=== PATIENT | female | born 1945 | race Caucasian/White ===

== ENCOUNTER 2023-10-14 05:04 | Observation (INO) ==
--- NOTE | 2023-09-06 14:44 | PAT Medication Instructions ---
Medication Instructions Date of Service September 06, 2023 Home Medications bimatoprost 0.01 % eye drops (Lumigan) 1 drp OPL HS bupropion HCl 150 mg 24 hr tablet, extended release 150 mg PO QAM duloxetine 60 mg capsule,delayed release (Cymbalta) 60 mg PO BID gabapentin 100 mg capsule 100 mg PO BID hydroxyzine HCl 25 mg tablet 25 mg PO TID PRN Anxiety levetiracetam 500 mg tablet 500 mg PO BID ropinirole 0.25 mg tablet 0.25 mg PO BID topiramate 50 mg tablet 50 mg PO QAM DO NOT take the morning of surgery hydroxyzine HCl 25 mg tablet 25 mg PO TID PRN Anxiety Take morning of surgery With a small sip of water, OTHERWISE NOTHING TO EAT OR DRINK AFTER MIDNIGHT: bupropion HCl 150 mg 24 hr tablet, extended release 150 mg PO QAM duloxetine 60 mg capsule,delayed release (Cymbalta) 60 mg PO BID gabapentin 100 mg capsule 100 mg PO BID ropinirole 0.25 mg tablet 0.25 mg PO BID topiramate 50 mg tablet 50 mg PO QAM levetiracetam 500 mg tablet 500 mg PO BID Take evening before surgery bimatoprost 0.01 % eye drops (Lumigan) 1 drp OPL HS duloxetine 60 mg capsule,delayed release (Cymbalta) 60 mg PO BID gabapentin 100 mg capsule 100 mg PO BID hydroxyzine HCl 25 mg tablet 25 mg PO TID PRN Anxiety (if needed) levetiracetam 500 mg tablet 500 mg PO BID ropinirole 0.25 mg tablet 0.25 mg PO BID topiramate 50 mg tablet 50 mg PO QAM Other Notes If you have any questions please call us at [phone] or [phone] or [phone] or [phone]
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
[2023-10-14] MEDS: LR 60ML/HR IV SCH (06:06)
[2023-10-14] MEDS: FAMOTIDINE 20 MG TAB PO SCH (06:09)
[2023-10-14] MEDS: GABAPENTIN 300 MG CAP PO SCH (06:09)
[2023-10-14] MEDS: ACETAMINOPHEN 500 MG TAB PO SCH ×2 (06:09→21:04)
[2023-10-14] MEDS ORDERED: BUPIVACAINE 0.5 % 5 MG/1 ML PF 10ML VIAL ONE (06:20)
[2023-10-14] MEDS: dexAMETHasone**PF** 10 MG/ML VIAL IV SCH (06:28)
--- NOTE | 2023-10-14 06:31 | History & Physical Bridge Note ---
Date of Service October 14, 2023 History & Physical Bridge Note I have examined the patient, reviewed the History & Physical and in the interval since the performance of the History & Physical I have noted the following changes of clinical significance: no changes noted
[2023-10-14] MEDS ORDERED: fentaNYL citrate PF 100 MCG/2 ML VIAL IV PRN (06:38)
[2023-10-14] MEDS ORDERED: ONDANSETRON INJ 2 MG/ML 2 ML VIAL IV PRN ×2 (06:38→09:54)
[2023-10-14] MEDS ORDERED: ePHEDrine sulfate 50 MG/ML AMP IV PRN (06:38)
[2023-10-14] MEDS ORDERED: ATROPINE SULFATE 0.1 MG/ML 10ML SYR IV PRN (06:38)
[2023-10-14] MEDS ORDERED: MIDAZOLAM HCL 1 MG/ML 2ML VIAL ONE (06:40)
[2023-10-14] MEDS ORDERED: fentaNYL citrate PF 100 MCG/2 ML VIAL ONE (06:40)
[2023-10-14] MEDS: TRANEXAMIC ACID 1,000 MG **IV Pre-op IV SCH (06:40)
[2023-10-14] MEDS ORDERED: PROPOFOL IV EMULSION 10 MG/ML 20 ML VIAL IV ONE (06:48)
[2023-10-14] MEDS ORDERED: ONDANSETRON INJ 2 MG/ML 2 ML VIAL ONE (06:48)
[2023-10-14] MEDS: LR 500ML BOLUS, THEN 15ML/HR IV SCH (06:57)
[2023-10-14] MEDS: ceFAZolin 2000MG 2,000 MG/15 ML SYR IV SCH ×2 (07:00→15:25)
[2023-10-14] MEDS: ROPIV 0.5% 246mg, Ketorolac 30mg, EPINEPHrine 0.5mg in NSS INFIL SCH (07:37)
[2023-10-14] MEDS: ORTHO JOINT ANESTHETIC ONE (07:37)
[2023-10-14] MEDS ORDERED: ePHEDrine sulfate 50 MG/5 ML SYR ONE (07:44)
[2023-10-14] MEDS: TRANEXAMIC ACID 1,000 MG **IV Intra-op IV SCH (07:55)
--- NOTE | 2023-10-14 08:01 | Operative Report ---
PG Post Operative Report Pre & Post Diagnosis Operation Date: 10/14/23 07:00 Pre-Op Diagnosis: Right Hip Degenerative Joint Disease Post-Op Diagnosis: Right Hip Degenerative Joint Disease I identified the patient and participated in the time-out.: Yes Procedure Operation Date: 10/14/23 07:00 Actual Procedures p Right Anterior Total Hip Arthroplasty(Right) - Jb Ortiz DO Surgeon Jb Ortiz DO [employer] Machine Operator Jb Burroughs PA-C Estimated Blood Loss 150 Findings Consistent with Post-Op Diagnosis Specimens Right femoral head Description of Procedure Implants used I used a ZimmerBiomet total hip arthroplasty system with a size 2 standard offset Avenir Complete stem, a 48 mm G7 cup with a 25mm screw, an E1 polyet hylene liner, a 32 mm ceramic head with a 0 neck. Will arrived at the hospital for the above procedure. She was seen in the preoperative holding area and the operative extremity was identified and signed. She was given a spinal anesthetic, a preoperative antibiotic, and TXA. She was then taken back to the operating room and laid on the table in the supine position. She was given basic sedation. The operative leg was secured to a Puristst leg positioner. The hip was then prepped and draped in sterile fashion. A timeout was done and the patient and the operative extremity was properly identified. An anterior approach was used. Dissection was taken down through the fascia and the tensor muscle belly was retracted laterally and the rectus was retracted medially. The circumflex vessels were identified and ligated. The capsule was then incised and tagged for later repair. The femoral neck was then cut and the femoral head was removed. The acetabulum was exposed. Time was spent doing a complete circumferential labral release. Sequential reaming of the acetabulum up to a size 47 reamer was done. Final reamings were done under fluoroscopy to ensure appropriate version. A Biomet 48 mm G7 cup was then impacted into place. A single 25 mm screw was placed. The E1 polyethylene liner was then snapped into place. Surrounding soft tissues were then injected with 100 cc of an orthopedic pain control cocktail. The proximal femur was then exposed. Sequential broaching up to a size 2 broach was done. Off that broach a size 32 head with a 0 neck was trialed. The hip wa s reduced and fluoroscopic images showed anatomic alignment of the implants in acceptable length. The broach was removed. The final size 2 standard offset Avenir Complete stem was then impacted into place. A ceramic 32 mm head with a 0 neck was then impacted onto the stem and the hip was reduced. Final fluoroscopic images showed anatomic alignment of the hip. The capsule was then closed with #1 Vicryl suture. A dilute betadyne lavage was then done for 3 minutes. The joint was then irrigated with normal saline solution. The fascia was closed with #1 PDS suture. Skin was closed with 2-0 Vicryl, kojo, and a Silverlon dressing. She was then transferred to a hospital bed and taken to the post anesthesia care unit in stable condition. She tolerated the procedure well. Jb Burroughs PA-C, was present for the entire procedure. He was critical for patient positioning, prepping, draping, retraction exposure, wound closure and application of sterile dressing. I attest to the content of the Intraoperative Record and any orders documented therein. Any exceptions are noted below.
--- NOTE | 2023-10-14 08:37 | Fluoroscopy Report ---
INTRAOPERATIVE RADIOGRAPH CLINICAL HISTORY: Right hip arthroplasty. Fluoro time: 17 seconds Ka,r: 2.44 mGy FINDINGS: A single spot fluoroscopic view of the right hip is correlated with radiographs dated 2023. A bipolar right hip arthroplasty is in near anatomic alignment. A single cortical lag screw tra nsfixes the acetabular cup. There is no radiographic evidence of acute fracture on this fluoroscopic image. IMPRESSION: Intraoperative image from a right hip arthroplasty procedure as above. Electronically signed by: Ti Sharma M.D. 10/14/2023 8:35 AM
--- NOTE | 2023-10-14 08:52 | XRay Report ---
XR hip 1V RT w pelvis HISTORY: 78 years-old Female IN PACU - Post Surgical right hip arthroplasty COMPARISON: 08/16/2023 TECHNIQUE: AP view the pelvis with crosstable lateral view of the right hip FINDINGS: Right hip arthroplasty demonstrates satisfactory alignment. Lateral skin kojo with expected postop erative soft tissue swelling and deep tissue air. Moderate left hip osteoarthritis. No acute fracture , dislocation or unexpected opaque foreign body. IMPRESSION: Right hip arthroplasty with expected postoperative changes. ACT 112: Negative or not required by law. The above report was generated using voice recognition software. It may contain grammatical, syntax o r spelling errors. Electronically signed by: Aftab Robles M.D. 10/14/2023 8:50 AM
--- NOTE | 2023-10-14 09:22 | Anesthesiology Progress Note ---
Date of Service October 14, 2023 Anesthesia Post Procedure Vital Signs Vital Signs: Temp Pulse Pulse Resp BP BP Pulse Ox 10/14/23 09:10 36.4 C L 60 14 157/68 H 95 10/14/23 09:00 58 L 14 165/82 H 94 10/14/23 08:50 61 12 171/68 H 97 10/14/23 08:40 61 12 180/71 H 100 10/14/23 08:30 59 L 12 175/74 H 100 10/14/23 08:23 36.1 C L 63 12 157/71 H 97 10/14/23 05:39 36.6 C 65 18 184/75 H 99 O2 Del Method O2 Flow Rate 10/14/23 09:10 Room Air 10/14/23 09:00 Room Air 10/14/23 08:50 Room Air 10/14/23 08:40 Oxymask 7 10/14/23 08:30 Oxymask 7 10/14/23 08:23 Oxymask 7 10/14/23 05:39 Room Air Pain Intensity Right Shoulder: Pain Intensity: 7 Right Hip: Pain Intensity: 0 Notes Mental Status: alert / awake / arousable Patient Amnestic to Procedure: Yes Nausea / Vomiting: adequately controlled Pain: adequately controlled Airway Patency, RR, SpO2: stable & adequate BP & HR: stable & adequate Hydration State: stable & adequate Neuraxial Anesthesia: was administered and sensory block is resolving Anesthetic Complications: no major complications apparent
[2023-10-14] MEDS ORDERED: hydrOXYzine HCl 25 MG TAB PO PRN (09:54)
[2023-10-14] MEDS ORDERED: MAGNESIUM HYDROXIDE SUSP 30 ML UDC PO PRN (09:54)
[2023-10-14] MEDS ORDERED: NALOXONE HCL 0.4 MG/1 ML VIAL/CARP IV PRN (09:54)
[2023-10-14] MEDS ORDERED: METOCLOPRAMIDE HCL INJ 5 MG/ML 2 ML VIAL IV PRN (09:54)
[2023-10-14] MEDS ORDERED: HYDROmorphone INJ 0.5 MG/0.5 ML SYR IV PRN (09:54)
[2023-10-14] MEDS ORDERED: bisacodyL 10 MG SUPP PR PRN (09:54)
[2023-10-14] MEDS: SODIUM CHLORIDE 0.9% 1,000 ML IV SCH (11:04)
[2023-10-14] MEDS: oxyCODONE HCL IR 5 MG TAB (IMMEDIATE RELEASE) PO PRN (11:04)
[2023-10-14] MEDS: BIMATOPROST 0.01% OP SOLN 2.5 ML BTL OP SCH (11:06)
[2023-10-14] MEDS: BRINZOLAMIDE (AZOPT) OPS 10 ML BTL OP SCH (11:07)
[2023-10-14] MEDS: DOCUSATE SODIUM 100 MG CAP PO SCH (12:13)
[2023-10-14] MEDS: levETIRAcetam 500 MG TAB PO SCH (12:13)
[2023-10-14] MEDS: DULoxetine HCL 60 MG CAP PO SCH (12:13)
[2023-10-14] MEDS: rOPINIRole HCL 0.25 MG TABLET PO SCH (12:13)
[2023-10-14] MEDS: buPROPion XL 150 MG TABCR PO SCH (12:13)
[2023-10-14] MEDS: ASPIRIN 81 MG ECTAB PO SCH (12:13)
[2023-10-14] MEDS: MULTIVITAMIN TAB PO SCH (12:13)
[2023-10-14] MEDS: GABAPENTIN 100 MG CAP PO SCH (12:13)
[2023-10-14] MEDS: KETOROLAC TROMETHAMINE 15 MG/ML VIAL IV SCH (13:02)
[2023-10-14] MEDS: SENNA 8.6 MG TAB PO SCH (21:04)
--- NOTE | 2023-10-15 06:26 | Orthopedic Progress Note ---
Date of Service October 15, 2023 Assessment & Plan (1) Status post right hip replacement: Overall she is doing fairly well. She is not having too much pain in the right hip. She will be seen by physical therapy today for ambulation and range of motion exercises. She is on aspirin for DVT prophylaxis. Given her age and her home status, we will keep her today for ambulation and pain control. We will plan to discharge her to home tomorrow. Adrian Solis was seen and examined at bedside this morning. Overall she is doing fairly well. She is not having too much pain in the right hip. She has been up and ambulating to the bathroom. She has no complaints.. Review of Systems All systems reviewed & are unremarkable except as noted in HPI & below. Physical Exam On physical examination of the right hip, the dressing is clean and dry. Her leg is out in full extension. She has active dorsiflexion and plantarflexion of her right ankle.. Results & Data Results & Data Laboratory Results . Diagnostic Findings Postoperative x-rays of the right hip show the prosthesis to be in anatomic alignment without any evidence of fracture complication, or loosening.. PG Care Time/CCT Total # of Minutes Spent Total Time Spent with Patient: Total time spent is greater than 50% in coordination of care (as documented) at patient's floor/unit and/or counseling patient: Coding Level of Care Code 84914 Post Operative Follow-Up Diagnoses Status post right hip replacement Z96.641
[2023-10-15] MEDS: dexAMETHasone 4 MG TAB PO SCH (09:09)
--- NOTE | 2023-10-16 10:49 | Surgery Progress Note ---
Date of Service October 16, 2023 Assessment & Plan (1) Status post right hip replacement: Plan: 78-year-old female postop day 2 from a right total hip replacement doing reasonably well. Pains controlled. Hips located. She is neurologically intact. Just waiting for placement. Plan: 1. DVT prophylaxis including thigh-high teds, SCDs, aspirin twice a day. 2. PT/OT. Weight-bear as tolerated. Right total hip protocol. 3. Pain control doing okay with current pain regimen. 4. Disposition she is planned to be discharged to [facility]. Just waiting for placement. Admission and Anticipated Discharge Date Admission Date: October 14, 2023 Subjective 78-year-old female postop day 2 from a right total hip replacement. She is doing pretty well. Some pain but very manageable. Denies any chest pain or shortness of breath. Really just waiting for placement. She is hoping to go to [facility]. Physical Exam Physical Exam: Physical examination is a pleasant elderly female patient lying bed looks pretty comfortable. Examination the right hip reveals the dressing to be clean dry and intact. Leg lengths are equal. Thigh is soft and supple. She is neurologically intact. Results & Data Vital Signs (Past 12 Hours) Vital Signs Temp Pulse Pulse Resp BP Pulse Ox O2 Del Method 10/16/23 08:21 60 145/62 H 10/16/23 07:27 36.6 C 49 L 18 188/79 H 97 Room Air PG Care Time/CCT Total # of Minutes Spent Total Time Spent with Patient: Total time spent is greater than 50% in coordination of care (as documented) at patient's floor/unit and/or counseling patient: Coding Level of Care Code 00735 Post Operative Follow-Up Diagnoses Status post right hip replacement Z96.641
--- NOTE | 2023-10-17 07:55 | Discharge Summary ---
Date of Service October 17, 2023 Admission HPI (Per Admitting) Will is a pleasant 78-year-old female who has been dealing with chronic increasing right hip and groin pain. It has been getting worse over the past year. She has been treated at another facility by her primary care physician. She has had x-rays as well as an injection in her hip joint. The injection helped briefly. She is still dealing with a lot of groin pain. She is having trouble sleeping at night. She is having trouble getting in and out of a car. She has been diagnosed with advanced osteoarthritis of the right hip. After failed conservative treatment, she has elected proceed with a right anterior total of arthroplasty. Admission Exam (Per Admitting) On physical examination of the right hip, she has decreased range of motion. She has pain with forced internal and external rotation. All of her pain is located in her groin.. Principal Diagnosis Same as "Discharge Diagnosis" noted below under Discharge Instructions. Discharge Exam On physical examination of the right hip, the dressing is clean and dry. Her leg is out in full extension. She has active dorsiflexion and plantarflexion of her right ankle.. Discharge Data Procedures Performed Operation Date: 10/14/23 07:00 Actual Procedures p Right Anterior Total Hip Arthroplasty(Right) - Jb Ortiz DO Ordered Studies 10/14/23 07:00 FL hip RT 1V Routine Hospital Course (1) Status post right hip replacement: On October 14, 2023 Will arrived at [facility] and underwent a right hip replacement without complication. She had a spinal anesthetic. Postoperatively she was started on aspirin for DVT prophylaxis and transferred to the general orthopedic floors. Her hospital course was uneventful. On postop day #1, her vital signs were stable and her pain was well-controlled. She was able to participate well with physical therapy doing ambulation and range of motion exercises. Because of her living situation at home, she was requesting placement in a rehab facility. On postop day #2, she continued to do well. She participated well again with physical therapy. She was then discharged to [facility] in [place]. She will follow-up with orthopedics in 2 weeks. PG Care Time/CCT Total # of Minutes Spent Total Time Spent with Patient: Total time spent is greater than 50% in coordination of care (as documented) at patient's floor/unit and/or counseling patient: Discharge Plan Discharge Items Patient Disposition: Transfer Inpatient Rehab Fac Reason For Visit: Right Hip Degenerative Joint Disease Discharge Diagnosis: Right hip replacement Activity: Per Instructions section Non-emergency contact: Surgeon Call non-emergency contact if: your wound has increased redness and your wound has increased drainage Follow-up/Referrals: Jan Willams DO [Primary Care Provider] - Diet: Regular Addtl Attending Provider Instructions: Activity and Therapy Recommendations: * If you are using [facility] then therapy will be provided at your home until they feel you have accomplished all of your goals. * If you are using [facility] then Physical Therapy will be provided until they feel you are ready to start Outpatient Physical Therapy. * If you are not using home therapy then Outpatient Physical Therapy should start about 3-5 days from your day of surgery. Therapy will last about 6-10 weeks * You were shown a series of exercises in the hospital. Do these exercises three times each day including the exercises you were shown in physical therapy. * Get up and walk several times each day.~ For the first four weeks, try not to stand or walk for more than one hour at a time. If you do stand or walk for more than one hour, you will not hurt anything, but your leg will likely swell.~~ * As you feel comfortable, you may change from the walker or crutches to a cane and~then to independent walking. Medications: * Narcotic You will likely be sent home from the hospital with a prescription for the narcotic pain medication that worked best throughout your stay. * Cefadroxil -take the antibiotic twice a day for 10 days to help prevent infection. * Aspirin Most patients will be required to take Aspirin 81mg twice a day for 6 weeks after surgery. This is obtained [id number] and a prescription is not necessary. * Other medications may be prescribed for specific circumstances. If you have any questions, please call the office at . * Resume previous home medications unless otherwise instructed TEDs/Elastic Stockings: The white elastic stockings help limit swelling and prevent blood clots from forming in your legs. The more you wear them, the more they work. Wear them for six weeks. Dressing Care: Leave the Silverlon dressing in place for 7 days. After 7 days you may remove the dressing. If the incision is not draining then you may leave the kojo open to air. If there is a little bit of drainage or if the kojo are getting stuck on your clothing then cover the incision with a dry dressing. The kojo will be removed at your 2 week follow-up appointment. Showering: You may shower with the Silverlon dressing in place. Do not let the shower spray hit the dressing directly. Pat the Silverlon dressing dry. If the dressing becomes wet underneath, then simply remove the dressing. Keep the incision dry until you are 7 days out from the day of surgery. After 7 days you may remove the Silverlon dressing and shower with the kojo exposed. Let soapy water run over the kojo and pat them dry. Do not scrub or soak the incision. Things To Watch For: * Drainage from the incision site that occurs more than one week after your surgery. * Increased redness at the incision site. * Fever above 102 degrees Fahrenheit. * Unusual chest pain or shortness of breath. * Call [facility] at with any of the above problems Follow-Up Visit: Follow-up with Dr. Ortiz's PA (Jb Burroughs) 2-3 weeks after your day of surgery. He will remove your kojo and answer any questions. If you have any additional questions or concerns, Dr Ortiz is usually in the office at the same time and will be available An appointment was probably scheduled when you signed-up for surgery in the office. If you have any questions call Office Instructions: More detailed instructions as well as Frequently Asked Questions were provided in a folder by our office when you signed-up for surgery. Please review these instructions when you get home. If you have any further questions or concerns, please feel free to call the office at [phone] Pending Studies at Discharge: No Stand-Alone Forms: [facility] Skilled Items Patient informed of condition?: Yes DNR: No Discharge Level of Care: Acute rehab Communicable Disease: No Discharge Prognosis: Improving Lines: None Urinary Catheter: No Medications and DC Order Prescriptions: New aspirin 81 mg Tablet,Delayed Release (Dr/Ec) 81 mg PO BID 42 Days Qty: 0 0RF tramadol 50 mg tablet 50 mg PO Q6H PRN (Reason: pain) Qty: 30 0RF cefadroxil 500 mg capsule 500 mg PO BID 10 Days Qty: 20 0RF Continued levetiracetam 500 mg Tablet 500 mg PO BID ropinirole 0.25 mg Tablet 0.25 mg PO BID hydroxyzine HCl 25 mg Tablet 25 mg PO TID PRN (Reason: Anxiety) gabapentin 100 mg Capsule 100 mg PO BID bupropion HCl 150 mg Tablet Extended Release 24 Hr 150 mg PO QAM duloxetine [Cymbalta] 60 mg Capsule,Delayed Release(Dr/Ec) 60 mg PO BID Lumigan 0.01 % Drops 1 drp OPL BID brinzolamide 1 % Drops,Suspension 1 drp OPHTHALMIC (EYE) BID Discharge Orders: Discharge Order (Routine); Ordered 10/16/23 Ordered By: Alex Gustafson/Other Patient Handouts: DVT Post Op Prevention Admission Data Admit Date/Time: 10/14/23 08:29 Attending Provider: Jb Ortiz Admit Provider: Jb Ortiz Primary Care Provider: Jan Willams Other Interventions: Discharge Summary Assessment (RN) Last Done: 10/16/23 13:22
== END 2023-10-16 13:59 ==
LOC: 3E 05:04 → ASU 05:04